=== PATIENT | male | born 1980 | race Hispanic/Latino ===

== ENCOUNTER 2018-01-15 19:01 | Emergency (ER) | payer OTHER ==
[2018-01-15] MEDS ORDERED: MEPERIDINE HCL 50 MG/ML AMP ONE (20:38)
[2018-01-15] MEDS ORDERED: ONDANSETRON 4 MG (ODT) TAB ONE (20:38)
--- NOTE | 2018-01-15 20:40 | ER ---
Nurse's Notes [facility] Name: Kendall Warren Age: 37 yrs Sex: Male : 1980 Arrival Date: 01/15/2018 Time: 19:04 Bed 13 Private MD: Diagnosis: Low back pain;Radiculopathy, lumbar region Presentation: 01/15 19:18 Presenting complaint: Patient states: Lower back pain that began yesterday, more to lp1 left low back radiating down left leg; Has been moving furniture, lifting heavy objects; Hx of herniated disc. Transition of care: patient was not received from another setting of care. Onset of symptoms was January 14, 2018. Care prior to arrival: None. 19:18 Method Of Arrival: Ambulatory lp1 19:18 Acuity: ALFONZO 4 lp1 Historical: - Allergies: 19:21 PENICILLINS; lp1 - Home Meds: 19:21 None [Active]; lp1 - PMHx: 19:21 Back pain; Herniated disc; lp1 - PSHx: 19:21 None; lp1 - Immunization history:: Adult Immunizations up to date. - Social history:: Smoking status: Patient uses tobacco products, denies chronic smoking, but will smoke occasionally. Screenin:21 Abuse screen: Denies threats or abuse. Denies injuries from another. Nutritional lp1 screening: No deficits noted. Tuberculosis screening: No symptoms or risk factors identified. Fall Risk None identified. Assessment: 19:21 General: Appears in no apparent distress. comfortable, Behavior is calm, cooperative, aa1 appropriate for age. Pain: Complains of pain in low back area Pain radiates to left leg Pain currently is 10 out of 10 on a pain scale. Quality of pain is described as sharp. Neuro: Level of Consciousness is awake, alert, obeys commands, Oriented to person, place, time, situation, Moves all extremities. Full function Gait is steady. Respiratory: Airway is patent Respiratory effort is even, unlabored, Respiratory pattern is regular, symmetrical. GI: No signs and/or symptoms were reported involving the gastrointestinal system. : No signs and/or symptoms were reported regarding the genitourinary system. EENT: No signs and/or symptoms were reported regarding the EENT system. Derm: Skin is intact, is healthy with good turgor, Skin is pink, warm \T\ dry. Musculoskeletal: Circulation, motion, and sensation intact. Capillary refill < 3 seconds, Range of motion: intact in all extremities. 20:22 Reassessment: Patient appears in no apparent distress at this time. Patient and/or aa1 family updated on plan of care and expected duration. Pain level reassessed. Patient is alert, oriented x 3, equal unlabored respirations, skin warm/dry/pink. Awaiting provider disposition. 20:46 Reassessment: Patient appears in no apparent distress at this time. Patient is alert, aa1 oriented x 3, equal unlabored respirations, skin warm/dry/pink. Discussed d/c \T\ f/u instructions with pt; denies questions or concerns Patient states feeling better. Patient states symptoms have improved. Vital Signs: 19:20 BP 143 / 87; Pulse 65; Resp 18; Temp 98.2(TE); Pulse Ox 99% on R/A; Weight 97.52 kg; lp1 Height 6 ft. 0 in. (182.88 cm); Pain 10/10; 20:17 BP 139 / 82; Pulse 67; Resp 16; Pulse Ox 100% on R/A; aa1 19:20 Body Mass Index 29.16 (97.52 kg, 182.88 cm) lp1 ED Course: 19:04 Patient arrived in ED. al2 19:20 Triage completed. lp1 19:20 Arm band placed on left wrist. lp1 19:21 Jannie Henning, RN is Primary Nurse. aa1 19:21 Patient has correct armband on for positive identification. Bed in low position. Call aa1 light in reach. Pulse ox on. NIBP on. 19:26 Miguel Ybarra PA is PHCP. jr8 19:26 Rafiq Medina MD is Attending Physician. jr8 20:46 No provider procedures requiring assistance completed. Patient did not have IV access aa1 during this emergency room visit. Administered Medications: 20:24 Drug: Demerol 50 mg Route: IM; Site: left deltoid; aa1 20:45 Follow up: Response: No adverse reaction; Pain is decreased aa1 20:24 Drug: Zofran 4 mg Route: PO; aa1 20:44 Follow up: Response: No adverse reaction aa1 Outcome: 20:39 Discharge ordered by . jr8 20:46 Discharged to home ambulatory, with significant other. aa1 20:46 Condition: good 20:46 Discharge instructions given to patient, Instructed on discharge instructions, follow up and referral plans. medication usage, Demonstrated understanding of instructions, follow-up care, medications, Prescriptions given X 3. 20:47 Patient left the ED. aa1 Signatures: Jannie Henning RN RN aa1 Ayla Escalante RN RN lp1 Miguel Ybarra PA PA jr8 Lizette Villalobos
--- NOTE | 2018-01-15 20:40 | EDPHYS ---
Physician Documentation [facility] Name: Kendall Warren Age: 37 yrs Sex: Male : 1980 Arrival Date: 01/15/2018 Time: 19:04 Bed 13 Private MD: ED Physician Rafiq Medina HPI: 01/15 19:56 This 37 yrs old Male presents to ER via Ambulatory with complaints of Back jr8 Pain. 19:56 The patient presents with pain that is acute. The symptoms are located in the low back. jr8 Onset: The symptoms/episode began/occurred acutely, yesterday. The pain radiates. Associated signs and symptoms: The patient has no apparent associated signs or symptoms. The problem was sustained when lifting. Modifying factors: The patient symptoms are alleviated by nothing, the patient symptoms are aggravated by bending. Severity of symptoms: At their worst the symptoms were moderate, in the emergency department the symptoms are unchanged. The patient has experienced a previous episode. The patient has not recently seen a physician. Stated that he had been doing some heavy lifting and working long hours. Stated that he thinks he pulled his back again. Has history of low back pain with disc herniation in past. Pain feels similar to what he had done before. Radiation down right leg. Denies bowel or bladder dysfunction. Denies saddle anesthesia . Historical: - Allergies: 19:21 PENICILLINS; lp1 - Home Meds: 19:21 None [Active]; lp1 - PMHx: 19:21 Back pain; Herniated disc; lp1 - PSHx: 19:21 None; lp1 - Immunization history:: Adult Immunizations up to date. - Social history:: Smoking status: Patient uses tobacco products, denies chronic smoking, but will smoke occasionally. ROS: 19:56 Eyes: Negative for injury, pain, redness, and discharge, ENT: Negative for injury, jr8 pain, and discharge, Neck: Negative for injury, pain, and swelling, Cardiovascular: Negative for chest pain, palpitations, and edema, Respiratory: Negative for shortness of breath, cough, wheezing, and pleuritic chest pain, Abdomen/GI: Negative for abdominal pain, nausea, vomiting, diarrhea, and constipation, MS/Extremity: Negative for injury and deformity, Skin: Negative for injury, rash, and discoloration, Neuro: Negative for headache, weakness, numbness, tingling, and seizure. 19:56 Back: Positive for pain at rest, pain with movement, radiated pain, of the low back area. Exam: 19:56 Cardiovascular: Regular rate and rhythm with a normal S1 and S2. No gallops, murmurs, jr8 or rubs. Normal PMI, no JVD. No pulse deficits. Respiratory: Lungs have equal breath sounds bilaterally, clear to auscultation and percussion. No rales, rhonchi or wheezes noted. No increased work of breathing, no retractions or nasal flaring. Abdomen/GI: Soft, non-tender, with normal bowel sounds. No distension or tympany. No guarding or rebound. No evidence of tenderness throughout. Skin: Warm, dry with normal turgor. Normal color with no rashes, no lesions, and no evidence of cellulitis. MS/ Extremity: Pulses equal, no cyanosis. Neurovascular intact. Full, normal range of motion. Neuro: Awake and alert, GCS 15, oriented to person, place, time, and situation. Cranial nerves II-XII grossly intact. Motor strength 5/5 in all extremities. Sensory grossly intact. Cerebellar exam normal. Normal gait. 19:56 Back: pain, that is moderate, of the low back area, ROM is painful, normal spinal alignment noted, CVA tenderness, is absent. Vital Signs: 19:20 BP 143 / 87; Pulse 65; Resp 18; Temp 98.2(TE); Pulse Ox 99% on R/A; Weight 97.52 kg; lp1 Height 6 ft. 0 in. (182.88 cm); Pain 10/10; 20:17 BP 139 / 82; Pulse 67; Resp 16; Pulse Ox 100% on R/A; aa1 19:20 Body Mass Index 29.16 (97.52 kg, 182.88 cm) lp1 MDM: 19:26 Patient medically screened. jr8 20:38 Data reviewed: vital signs, nurses notes, and as a result, I will discharge patient. jr8 Data interpreted: Pulse oximetry: on room air is 100 %. Interpretation: normal. Counseling: I had a detailed discussion with the patient and/or guardian regarding: the historical points, exam findings, and any diagnostic results supporting the discharge/admit diagnosis, the need for outpatient follow up, a family practitioner, to return to the emergency department if symptoms worsen or persist or if there are any questions or concerns that arise at home. Response to treatment: the patient's symptoms have markedly improved after treatment. Administered Medications: 20:24 Drug: Demerol 50 mg Route: IM; Site: left deltoid; aa1 20:45 Follow up: Response: No adverse reaction; Pain is decreased aa1 20:24 Drug: Zofran 4 mg Route: PO; aa1 20:44 Follow up: Response: No adverse reaction aa1 Disposition: 01/15/18 20:39 Discharged to Home. Impression: Low back pain, Radiculopathy, lumbar region. - Condition is Stable. - Discharge Instructions: Back Pain, Adult, Back Exercises, [id number], Heat Therapy. - Prescriptions for Ibuprofen 800 mg Oral Tablet - take 1 tablet by ORAL route every 12 hours As needed take with food; 20 tablet. Cyclobenzaprine 10 mg Oral Tablet - take 1 tablet by ORAL route every 8 hours As needed; 30 tablet. Tramadol 50 mg Oral Tablet - take 1 tablet by ORAL route every 8 hours as needed; 12 tablet. - Medication Reconciliation Form, Thank You Letter, Antibiotic Education, Prescription Opioid Use form. - Follow up: Private Physician; When: 1 week; Reason: Recheck today's complaints, Continuance of care, Re-evaluation by your physician. - Problem is new. - Symptoms have improved. Addendum: 01/18/2018 07:14 Co-signature as Attending Physician, Rafiq Medina MD I agree with the assessment and c luis plan of care. Signatures: Jannie Henning RN RN aa1 Rafiq Medina MD MD cha Pena, Laura, RN RN lp1 Miguel Ybarra PA PA jr8
== END 2018-01-15 20:47 | disposition home or self-care (01) ==
LOC: ER 19:01
DX: M54.16 Radiculopathy, lumbar region (principal); Z72.0 Tobacco use; Z88.0 Allergy status to penicillin
CPT/HCPCS: 96372; 99283; J2175